=== PATIENT | female | born 1960 | race Caucasian/White ===

== ENCOUNTER 2021-07-28 14:25 | Outpatient (CLI) | payer OTHER ==
[2021-07-28 15:31] LABS: INR-International Normal Ratio 0.9; Prothrombin Time 10.5 sec (9.5-12.1)
[2021-07-29 16:10] LABS: SARS-CoV-2 PCR by NAA Not Detected (NotDetected)
== END 2021-07-28 14:26 | disposition home or self-care (01) ==
LOC: LABBT 14:25
PROVIDERS: ATTEND Neurological Surgery
DX: Z01.812 Encounter for preprocedural laboratory examination (principal); Z20.822 Contact with and (suspected) exposure to COVID-19
CPT/HCPCS: 85610; 85730; 93005; 93010; U0003; U0005

== ENCOUNTER 2021-08-01 05:46 | Day surgery (SDC) | payer OTHER ==
[2021-07-27 14:21] VITALS: BMI 34.7
[2021-08-01] MEDS ORDERED: Thrombin 5000 UNITS/5 ML VIAL ONE (06:10)
[2021-08-01] MEDS ORDERED: EPINEPHrine 1 MG/ML AMP ONE (06:10)
[2021-08-01] MEDS ORDERED: Bupivacaine 0.25% 10 ML VIAL ONE (06:10)
[2021-08-01] MEDS ORDERED: Neomycin-Polymyxin 1 ML AMP ONE (06:10)
[2021-08-01] MEDS ORDERED: Fentanyl 250 MCG/5 ML VIAL ONE (06:37)
[2021-08-01] MEDS ORDERED: ceFAZolin (BATCH) 2 GM/100 ML BAG ONE (06:42)
[2021-08-01] MEDS ORDERED: Midazolam HCl 2 mg/2 ml Vial ONE (06:50)
[2021-08-01] MEDS ORDERED: Dexamethasone 20 MG/5 ML VIAL ONE (07:02)
[2021-08-01] MEDS ORDERED: Lidocaine 1% PF 5 ML VIAL ONE (07:02)
[2021-08-01] MEDS ORDERED: Ketorolac Tromethamine 30 MG/ML VIAL ONE (07:02)
[2021-08-01] MEDS ORDERED: Ondansetron PF 4 MG/2 ML Vial ONE (07:02)
[2021-08-01] MEDS ORDERED: Rocuronium Bromide 10 MG/ML (10ML VIAL) ONE (07:02)
[2021-08-01] MEDS ORDERED: PROPOFOL 200 MG/20 ML VIAL ONE (07:02)
[2021-08-01] MEDS ORDERED: SUGAMMADEX SODIUM 200 MG/2 ML VIAL ONE (09:38)
== END 2021-08-01 13:40 | disposition home or self-care (01) ==
LOC: SDC 05:46
PROVIDERS: ATTEND Neurological Surgery
PROC: 01NB0ZZ Release Lumbar Nerve, Open Approach (ICD-10-PCS; principal; 2021-08-01)
PROC: 0QB00ZZ Excision of Lumbar Vertebra, Open Approach (ICD-10-PCS; principal; 2021-08-01)
DX: M71.38 Other bursal cyst, other site (principal); M48.062 Spinal stenosis, lumbar region with neurogenic claudication; M48.07 Spinal stenosis, lumbosacral region; M51.16 Intervertebral disc disorders with radiculopathy, lumbar region; E78.00 Pure hypercholesterolemia, unspecified; E11.9 Type 2 diabetes mellitus without complications; Z79.4 Long term (current) use of insulin; Z79.84 Long term (current) use of oral hypoglycemic drugs; Z79.899 Other long term (current) drug therapy
CPT/HCPCS: 76000; J0171; J0690; J1100; J1885; J2250; J2405; J2704; J3010; J3370; S0020